=== PATIENT | female | born 1950 | race Caucasian/White ===

== ENCOUNTER 2023-03-23 14:36 | Outpatient (REF) | payer OTHER, SELFPAY | END 2023-03-23 14:37 | disposition home or self-care (01) | LOC: NCHCN 14:36 | PROVIDERS: PCP Family Medicine; Visit Provider Physician Assistant | DX: R82.90 Unspecified abnormal findings in urine (principal); R82.89 Other abnormal findings on cytological and histological examination of urine | CPT/HCPCS: 87086 ==

== ENCOUNTER 2023-04-06 18:24 | Outpatient (REF) | payer OTHER, SELFPAY ==
[2023-04-06 20:17] LABS: HCT 29.8 % (36.0-46.0); HGB 9.3 g/dL (11.2-15.7); MCH 29.5 pg (27.0-33.0); MCHC 31.2 % (32.0-36.0); MCV 95 fL (80-95); MPV 11.8 fL (8.0-11.0); Platelet Count 594 10^3/uL (130-400); RBC 3.15 10^6/uL (3.93-5.22); RDW 14.5 % (11.7-14.6); RDW-SD 50.2 fL; WBC 8.79 10^3/uL (4.4-10.8)
[2023-04-06 20:44] LABS: ALT 36 U/L (14-59); AST 38 U/L (15-37); Albumin 3.7 g/dL (3.4-5.0); Alkaline Phosphatase 59 U/L (46-116); Anion Gap 5.7 mmol/L (3-11); BUN 11 mg/dL (7-18); Bilirubin, Total 0.2 mg/dL (0.2-1.0); CO2 27.3 mmol/L (21.0-32.0); CREATININE 0.9 mg/dL (0.55-1.02); Calcium 9.6 mg/dL (8.5-10.1); Chloride 108 mmol/L (98-107); Glucose 87 mg/dL (74-106); Lipase 47 U/L (16-77); Potassium 4.6 mmol/L (3.5-5.1); Sodium 141 mmol/L (136-145); Total Protein 7.1 g/dL (6.4-8.2)
== END 2023-04-06 18:25 | disposition home or self-care (01) ==
LOC: NCHCN 18:24
PROVIDERS: PCP Family Medicine; Visit Provider Family Medicine
DX: R10.30 Lower abdominal pain, unspecified (principal)
CPT/HCPCS: 80053; 83690; 85027

== ENCOUNTER 2024-09-11 16:16 | Outpatient (REF) | payer MEDICARE, SELFPAY ==
[2024-09-11 21:20] LABS: Anion Gap 12.4 mmol/L (3-11); BUN 10 mg/dL (7-18); CO2 27.6 mmol/L (21.0-32.0); CREATININE 0.7 mg/dL (0.55-1.02); Chloride 101 mmol/L (98-107); Estimated GFR 90.14 (mL/min/1.73m2); Glucose 101 mg/dL (74-106); Potassium 3.4 mmol/L (3.5-5.1); Sodium 141 mmol/L (136-145)
== END 2024-09-11 16:17 | disposition home or self-care (01) ==
LOC: NCHCN 16:16
PROVIDERS: PCP Family Medicine; Visit Provider Family Medicine
DX: I10 Essential (primary) hypertension (principal)
CPT/HCPCS: 80048